=== PATIENT | male | born 1950 | race Caucasian/White ===

== ENCOUNTER 2019-06-19 10:00 | Day surgery (SDC) | payer OTHER ==
[2019-06-18 11:46] VITALS: BMI 28.0
[2019-06-19] MEDS ORDERED: Lidocaine 1% PF 5 ML VIAL ONE (10:17)
[2019-06-19] MEDS ORDERED: ePHEDrine/0.9% NaCl/PF SYRINGE 50 mg/10 ml ONE (10:17)
[2019-06-19] MEDS ORDERED: PROPOFOL 200 MG/20 ML VIAL ONE (10:17)
[2019-06-19] MEDS ORDERED: PHENYLEPHRINE-NS 100 MCG/ML 10 ML SYRINGE ONE (10:17)
[2019-06-19] MEDS ORDERED: Succinylcholine Chloride 20 MG/ML 10 ml SYRINGE FS ONE (10:17)
[2019-06-19] MEDS ORDERED: Dexamethasone 20 MG/5 ML VIAL ONE (10:17)
[2019-06-19] MEDS ORDERED: Ondansetron PF 4 MG/2 ML Vial ONE (10:17)
[2019-06-19 11:14] LABS: Hemoglobin 18.2 g/dL (14.0-18.0)
[2019-06-19] MEDS ORDERED: Fentanyl 100 MCG/2 ML VIAL ONE ×2 (11:15→12:38)
[2019-06-19] MEDS ORDERED: Bacitracin Zinc Ointment 30 gm TUBE ONE (11:23)
[2019-06-19] MEDS ORDERED: Lidocaine 1% w/Epinephrine 1:100K 20 ML VIAL ONE (11:23)
[2019-06-19 11:42] LABS: Anion Gap 12 mmol/L (10-20); BUN (Urea Nitrogen) 13 mg/dL (8.4-25.7); Calc. Creatinine Clearance 107 mL/min (70-130); Calcium 9.4 mg/dL (7.8-10.44); Carbon Dioxide 26 mmol/L (23-31); Chloride 104 mmol/L (98-107); Estimated GFR-MDRD Greater than 90; Glucose 103 mg/dL (80-115); Potassium 3.9 mmol/L (3.5-5.1); Sodium 138 mmol/L (136-145)
[2019-06-19] MEDS ORDERED: PROPOFOL 40 ML ONE (12:14)
--- NOTE | 2019-06-20 09:26 | OP ---
DATE OF PROCEDURE: PREOPERATIVE DIAGNOSIS: Right parotid mass. POSTOPERATIVE DIAGNOSIS: Right parotid mass. PROCEDURE PERFORMED: Right superficial parotidectomy with facial nerve dissection using facial nerve monitoring. PROCEDURE IN DETAIL: After consent was obtained, the patient was identified and brought to the operating room and placed on the operating table in supine position. General endotracheal anesthesia was obtained. The patient was positioned for surgery. The facial nerve monitor was placed and then proceeded with positioning the patient for surgery, prepping and draping. The topical anatomy was demarcated and the lines of incision were made in the skin creases in the preauricular and upper neck area with caution not to extend closer than 2 fingerbreadths below the . We then infiltrated this area with 1% lidocaine and made incision through the skin in the natural skin crease and elevated subplatysmal flaps at the level of the SMAS and platysma. This was then secured anteriorly and proceeded along the anterior border of the sternocleidomastoid and preauricular area. Ultimately, the digastric muscle was identified and the parotid was dissected from that region. The external canal area was dissected as well and ultimately the trunk of the facial nerve dissected custodial between the pointer cartilage and the posterior insertion of the digastric muscle. The facial nerve was then dissected meticulously as the deep posterior tumor was reflected anteriorly. This then ultimately when we were past the facial nerve, we then resected the tumor and sent it for permanent histologic evaluation. Hemostasis was obtained with cautery, sutured with ligation bipolar cautery. The flaps were then reapproximated and closed with the parotid fascia being reapproximated with 3-0 Monocryl and the dermis with 4-0 Vicryl. A running 5-0 suture was then performed with closing the skin. Sterile dressing applied. The patient was awakened and extubated, taken to recovery room in stable condition prior to discharge home. Job ID: [id number]
--- NOTE | 2019-06-23 18:49 | EKG ---
Test Reason : PREOP Blood Pressure : / mmHG Vent. Rate : 054 BPM Atrial Rate : 054 BPM P-R Int : 194 ms QRS Dur : 084 ms QT Int : 466 ms P-R-T Axes : 018 043 131 degrees QTc Int : 441 ms Sinus bradycardia Left ventricular hypertrophy with repolarization abnormality Abnormal ECG No previous ECGs available Confirmed by TERESA JUNIOR, DR. Ge ([id number]) on 06/23/2019 6:49:26 PM Referred By: YANDY Confirmed By:DR. Luma MOORE MD
== END 2019-06-19 15:09 | disposition home or self-care (01) ==
LOC: SDC 10:00
PROVIDERS: ATTEND Specialist
PROC: 00B Central Nervous System and Cranial Nerves, Excision (ICD-10-PCS; principal; 2019-06-19)
PROC: 0CT80ZZ Resection of Right Parotid Gland, Open Approach (ICD-10-PCS; principal; 2019-06-19)
DX: D11.0 Benign neoplasm of parotid gland (principal); I10 Essential (primary) hypertension; E78.5 Hyperlipidemia, unspecified; F17.200 Nicotine dependence, unspecified, uncomplicated; G47.30 Sleep apnea, unspecified; N40.0 Benign prostatic hyperplasia without lower urinary tract symptoms; Z99.89 Dependence on other enabling machines and devices
CPT/HCPCS: 80048; 85014; 85018; 88307; 93005; 93010; J1100; J2001; J2405; J2704; J3010